=== PATIENT | male | born 1990 | race Caucasian/White ===

== ENCOUNTER → 2019-01-27 | Outpatient (CLI) | payer SELFPAY ==
[~2019-01-27] MED LIST: HOLD METFORMIN - RECEIVED CONTRAST 20 ML VIAL IV SCH; IOHEXOL 350 MG/ML 100 ML (OMNIPAQUE 350) VIAL IV ONE; NS 100 ML (IVPB) BAG IV ONE
--- NOTE | 2019-01-27 08:29 | Diagnostic Imaging Report ---
EXAMINATION: CT Abdomen with intravenous contrast. TECHNIQUE: Multiple contiguous axial images were obtained through the abdomen after the administration of intravenous contrast. All CT scans use one or more of the following dose optimizing techniques: automated exposure control, MA and/or KvP adjustment based on a patient size and exam type, or iterative reconstruction. HISTORY: ABDOMINAL WALL ABSCESS COMPARISON: None available. FINDINGS: Limited views of the lower thorax are unremarkable. The liver is normal without focal lesion. There is no biliary ductal dilation. Gallbladder is normal. Pancreas is normal. Spleen is normal. Adrenal glands are normal. The kidneys are normal. There is no hydronephrosis. Urinary bladder is normal. Visualized bowel is normal in caliber without obstruction or inflammation. No free fluid or air. No abdominal lymphadenopathy. Aorta is normal in caliber without aneurysm. There is soft tissue thickening centered at the umbilicus. A local area of skin irregularity is present just above the umbilicus. There is an internal area of hyperattenuation which measures 18 x 7 mm. There is no intraperitoneal extension of this process. There are no suspicious osseus lesions. IMPRESSION: 1. Soft tissue thickening centered at the umbilicus with skin irregularity and an 18 x 7 mm internal area of hyperattenuation. This likely represents an infection process, with the hyperattenuation possibly representing an abscess. Ultrasound would be required to confirm the fluid nature of this collection. Dictated by: Dictated on workstation # [id number]
== END ==
LOC: RAD 07:47
PROVIDERS: ATTEND Nurse Practitioner Primary Care
DX: L02.211 Cutaneous abscess of abdominal wall (principal); R19.8 Other specified symptoms and signs involving the digestive system and abdomen
CPT/HCPCS: 74160